=== PATIENT | female | born 1965 | race Caucasian/White ===

== ENCOUNTER 2025-08-16 05:50 | Day surgery (SDC) | payer BC ==
[2025-08-16] MEDS ORDERED: Lactated Ringers 1,000 ML IV ONE (06:22)
[2025-08-16 06:35] VITALS: RESP 18
[2025-08-16] MEDS: Lactated Ringers 1,000 ML IV SCH (06:50)
[2025-08-16] MEDS ORDERED: propofoL IV ONE ×2 (07:32→07:53)
[2025-08-16] MEDS ORDERED: ROBINUL ONE (07:54)
[2025-08-16 08:39] VITALS: O2SAT 100
[2025-08-16 08:56] VITALS: BP 138/98; PULSE 101; TEMP 97.3
--- NOTE | 2025-08-17 09:44 | OP ---
SURGERY DATE/TIME: 08/16/2025 [id number] PREOPERATIVE DIAGNOSIS: Screening colonoscopy. POSTOPERATIVE DIAGNOSES: 1) Normal colon. 2) Diverticulosis. PROCEDURE: Colonoscopy. SURGEON: Kelton Santoyo MD ANESTHESIA: MAC by Gregory Osborne CRNA ESTIMATED BLOOD LOSS: None. SPECIMEN: None. DESCRIPTION OF PROCEDURE AND FINDINGS: After informed written consent was obtained, the patient was taken to the endoscopy suite. She was placed in left lateral decubitus position and anesthesia was titrated to desired level of consciousness. Digital rectal exam showed normal sphincter tone and no internal lesions. The scope was inserted into the rectum and sequentially the entire colonic mucosa was traversed. Level of the cecum was reached and verified with direct visualization of the ileocecal valve. Upon withdrawal, careful mucosal inspection revealed scattered diverticula with no evidence of bleeding or complications. Prior to withdrawal, retroflexion showed no internal lesions. The scope was removed, and the patient was transferred to the recovery room in good condition.
== END 2025-08-16 09:05 | disposition home or self-care (01) ==
LOC: SDC 05:50
PROVIDERS: ATTEND Family Medicine
DX: Z12.11 Encounter for screening for malignant neoplasm of colon (principal); K57.30 Diverticulosis of large intestine without perforation or abscess without bleeding